=== PATIENT | male | born 1970 | race Caucasian/White ===

== ENCOUNTER 2021-01-17 01:04 | Emergency (ER) | payer OTHER ==
[2021-01-17] MEDS ORDERED: Sodium Chloride 0.9% 1000 ML 1,000 ML IV STA (01:15)
[2021-01-17] MEDS ORDERED: HUMULIN R IV ONE (01:17)
--- NOTE | 2021-01-17 01:21 | ERPHSYRPT ---
- History of Present Illness Time Seen by Provider: 01/17/21 01:07 Source: patient Exam Limitations: no limitations Physician History: 50 years old morbidly obese male with history of hypertension, hyperlipidemia, diabetes mellitus poorly controlled presented in the ER with chief complaint of sudden onset dizziness when he woke up almost an hour prior to arrival to go to the bathroom. Patient report he was feeling as if he was going to pass out. It lasted for 30 to 60 seconds and improved. No numbness tingling or focal weakness. Denies any chest pain palpitations or shortness of breath before or after the episode. Patient reports he does not take any antidiabetic medications and his blood sugar usually stays high and also has poorly controlled blood pressure. No abdominal pain nausea or vomiting. Currently he is back to his normal. Patient also report having sinus congestion and discomfort since yesterday. Timing/Duration: hour(s) (1), sudden, improved Severity: moderate Associated Symptoms: denies symptoms Allergies/Adverse Reactions: No Known Drug Allergies Allergy (Unverified 09/07/13 16:40) Home Medications: Canagliflozin [Invokana] 300 mg PO DAILY 09/07/13 [History] Metformin HCl 1000 mg [Glucophage 1000 MG] 1,000 mg PO BID 09/07/13 [History] Nebivolol HCl 5 MG [Bystolic 5 MG] 5 mg PO BID 09/07/13 [History] Olmesartan Medoxomil 20 mg [Benicar 20 MG] 20 mg PO BID 09/07/13 [History] Simvastatin 40 mg [Zocor 40 mg] 40 mg PO BID 09/07/13 [History] Hx Tetanus, Diphtheria Vaccination/Date Given: Yes Hx Influenza Vaccination/Date Given: No Hx Pneumococcal Vaccination/Date Given: No - Review of Systems Constitutional: Fatigue Eyes: No Symptoms Ears, Nose, & Throat: Sinus Drainage Respiratory: No Symptoms Cardiac: No Symptoms Abdominal/Gastrointestinal: No Symptoms Genitourinary Symptoms: No Symptoms Musculoskeletal: No Symptoms Skin: No Symptoms Neurological: Dizziness Psychological: No Symptoms Endocrine: No Symptoms Hematologic/Lymphatic: No Symptoms Immunological/Allergic: No Symptoms - Past Medical History Pertinent Past Medical History: Yes Neurological History: No Pertinent History ENT History: Other Cardiac History: High Cholesterol, Hypertension Respiratory History: Bronchitis Endocrine Medical History: Diabetes Type II Musculoskeletal History: No Pertinent History GI Medical History: GERD, Hernia History: No Pertinent History Psycho-Social History: No Pertinent History Male Reproductive Disorders: No Pertinent History Other Medical History: 2 PIC LINES ET 4 SURGERIES ON LEFT ARM - Past Surgical History Past Surgical History: Yes Neuro Surgical History: No Pertinent History Cardiac: No Pertinent History Respiratory: No Pertinent History Gastrointestinal: No Pertinent History Genitourinary: No Pertinent History Musculoskeletal: No Pertinent History Male Surgical History: No Pertinent History Other Surgical History: LEFT ARM SURGERY TIMES 4 - Social History Smoking Status: Never smoker Exposure to second hand smoke: No Drug Use: none Patient Lives Alone: No - Nursing Vital Signs Nursing Vital Signs: Initial Vital Signs Pulse Rate 71 01/17/21 01:12 Respiratory Rate 18 01/17/21 01:12 Blood Pressure 192/94 01/17/21 01:12 O2 Sat by Pulse Oximetry 98 01/17/21 01:12 Pain Scale Pain Intensity 0 - Physical Exam General Appearance: no apparent distress, alert, anxiety Eye Exam: PERRL/EOMI, eyes nml inspection Ears, Nose, Throat Exam: TMs normal, pharynx normal, other (Bilateral mild maxillary sinus tenderness) Neck Exam: normal inspection, non-tender, full range of motion Respiratory Exam: normal breath sounds, lungs clear Cardiovascular Exam: regular rate/rhythm, normal heart sounds Gastrointestinal/Abdomen Exam: soft, normal bowel sounds Back Exam: normal inspection, normal range of motion Extremity Exam: normal inspection Neurologic Exam: alert, oriented x 3, cooperative, 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 as tested, nml cerebellar function, sensation nml, No normal mood/affect (Anxious), No motor deficits Skin Exam: normal color SpO2 Interpretation: normal SpO2: 97 O2 Delivery: Room Air - Course EKG Interpreted by Me: RATE (66), Sinus Rhythm, NORMAL AXIS, LAFB, NORMAL INTERVALS, Right Bundle Branch Block Ordered Tests: Active Orders 24 hr Category Date Time Status Nutrition Technician STAT Care 01/17/21 01:17 Active EKG-ER Only STAT Care 01/17/21 01:15 Active Orthostatic Vital Signs STAT Care 01/17/21 01:15 Active POCT Glucose Check STAT Care 01/17/21 01:15 Active CHEST 1 VIEW (PORTABLE) Stat Exams 01/17/21 01:16 Taken CBC W DIFF Stat Lab 01/17/21 01:46 Received CMP Stat Lab 01/17/21 01:46 Received MAGNESIUM Stat Lab 01/17/21 01:46 Received POCT GLUCOSE Stat Lab 01/17/21 01:08 Completed TROPONIN Q3H Lab 01/17/21 01:30 Ordered TROPONIN Q3H Lab 01/17/21 04:30 Ordered TROPONIN Q3H Lab 01/17/21 07:30 Ordered TROPONIN Q3H Lab 01/17/21 10:30 Ordered TROPONIN Q3H Lab 01/17/21 13:30 Ordered UA W/RFX UR CULTURE Stat Lab 01/17/21 01:16 Ordered Urine Triage Profile Stat Lab 01/17/21 01:16 Ordered Medication Summary Generic Name Dose Route Start Last Admin Trade Name Freq PRN Reason Stop Dose Admin Sodium Chloride 1,000 mls @ 999 mls/hr 01/17/21 01:15 Sodium Chloride 0.9% 1000 Ml IV 01/17/21 02:15 .Q1H1M STA Discontinued Medications Generic Name Dose Route Start Last Admin Trade Name Freq PRN Reason Stop Dose Admin Sodium Chloride Confirm 01/17/21 01:45 Sodium Chloride 0.9% 1000 Ml Administered 01/17/21 01:46 Dose 1,000 mls @ ud .ROUTE .STK-MED ONE Insulin Human Regular 6 unit 01/17/21 01:17 Insulin Regular, Human 1 Unit IV 01/17/21 01:18 STAT ONE Insulin Human Regular Confirm 01/17/21 01:45 Insulin Regular, Human 1 Unit Administered 01/17/21 01:46 Dose 6 unit .ROUTE .STK-MED ONE Lab/Rad Data: Laboratory Results 01/17/21 Range/Units 01:08 POC Glucometer 346 H (74 to 106) mg/dL - Departure Departure Disposition: Home Clinical Impression: Postural lightheadedness, Uncontrolled hypertension, Hyperglycemia Condition: Stable Critical Care Time: No Referrals: VERONICA CERVANTES [Primary Care Provider] - Follow up/PCP as directed (Tomorrow for reevaluation) Instructions: Vertigo (a Type of Dizziness) (DC) Additional Instructions: Monitor your blood sugar regularly, keep a log and follow-up with primary care for reevaluation. Restart taking Metformin. Monitor your blood pressure as well, keep a log and follow-up with PCP for reevaluation. Take clonidine as needed for blood pressure greater than 160. Return to ER for having dizziness, lightheadedness, numbness tingling focal weakness, difficulty speech, chest pain palpitations or shortness of breath. Prescriptions: Clonidine HCl 0.1 mg [Catapres 0.1 MG] 0.1 mg PO Q12H PRN PRN 10 Days #10 tablet PRN Reason: Hypertension
[2021-01-17] MEDS ORDERED: HUMULIN R ONE (01:45)
[2021-01-17] MEDS ORDERED: Sodium Chloride 0.9% 1000 ML 1,000 ML ONE (01:45)
[2021-01-17 01:56] LABS: Absolute Neutrophil Ct (ANC) 2.53 (1.4-6.9); Basophil (Absolute #) 0.05 (0-0.4); Eosinophil % 4.2 % (0.00-5.0); Eosinophil (Absolute #) 0.21 (0-0.5); Hematocrit 45.1 % (42-50); Hemoglobin 14.9 gm/dl (12.5-18.0); Lymphocyte (Absolute #) 1.84 (1.0-4.6); Lymphocytes % 36.7 % (24.0-44.0); Mean Cell Volume 83.2 fl (78-100); Mean Corpuscular Hemoglobin 27.5 pg (26-32); Mean Platelet Volume 12.7 fl (7.5-11.0); Monocyte (Absolute #) 0.39 (0.0-1.3); Monocytes % 7.8 % (0.0-12.0); Neutrophil % 50.3 % (36.0-66.0); Platelet Count 100 K/mm3 (150-450); Red Blood Count 5.42 M/mm3 (4.1-5.6); Red Cell Distribution Width 14.4 % (11.5-14.0)
[2021-01-17 02:06] LABS: ALBUMIN 3.7 g/dL (3.5-5.0); ALKALINE PHOSPHATASE 81 U/L (38-126); ANION GAP 11.1 MEQ/L (5-15); BLOOD UREA NITROGEN 15 mg/dL (9-20); CHLORIDE 101 mmol/L (98-107); Calcium 9.1 mg/dL (8.4-10.2); Carbon Dioxide 26 mmol/L (22-30); Creatinine 1 0.63 mg/dL (0.66-1.25); EST GLOMERULAR FILTRATION RATE > 60.0 ML/MIN; Glucose 328 mg/dL (74-106); MAGNESIUM 1.7 mg/dL (1.6-2.3); Potassium 4.5 mmol/L (3.5-5.1); SGOT/AST 35 U/L (17-59); SGPT/ALT 29 U/L (0-50); SODIUM 133 mmol/L (137-145); Total Protein 6.9 g/dL (6.3-8.2)
[2021-01-17 03:17] LABS: Appearance CLEAR (CLEAR); Bilirubin NEGATIVE (NEGATIVE); Blood NEGATIVE Ery/ul (0-5); Glucose >=500 mg/dL (NEGATIVE); Ketones NEGATIVE (NEGATIVE); Leukocyte Esterase NEGATIVE (NEGATIVE); Nitrite NEGATIVE (NEGATIVE); Protein,Urine Dip >=500 (Negative); Specific Gravity 1.035 (1.005-1.025); Urobilinogen 4 mg/dL (0-1)
[2021-01-17 03:32] LABS: Amphetamine,Urine NEGATIVE (NEGATIVE); Barbiturate,Urine NEGATIVE (NEGATIVE); Benzodiazepine,Urine NEGATIVE (NEGATIVE); Cocaine,Urine NEGATIVE (NEGATIVE); Methadone,Urine NEGATIVE (NEGATIVE); Opiate,Urine NEGATIVE (NEGATIVE); PCP,Urine NEGATIVE (NEGATIVE); THC,Urine NEGATIVE (NEGATIVE)
[2021-01-17 04:41] VITALS: BP 138/65; PULSE 58; O2SAT 97
--- NOTE | 2021-01-17 07:58 | XRAY ---
Indication: Headache and dizziness. Elevated blood pressure. Multiple contiguous axial images obtained through the head without contrast. Comparison: September 07, 2013. Normal appearing brain parenchyma, ventricles, and bony calvarium for patient's age. Visualized paranasal sinuses and mastoid air cells are clear. Impression: Continued normal CT head without contrast exam. Comment: Preliminary interpretation made by [facility]. No critical discrepancy.
--- NOTE | 2021-01-17 08:06 | XRAY ---
Indication: Dizziness. Comparison: None Portable apical lordotic chest demonstrates normal heart and lungs. Bony thorax intact with mild osteopenia, mild degenerative changes, and partially visualized left shoulder arthroplasty. Impression: Nonacute chest with chronic bony findings.
== END 2021-01-17 04:58 | disposition home or self-care (01) ==
LOC: ED 01:04
DX: I10 Essential (primary) hypertension (principal); R42 Dizziness and giddiness; E11.65 Type 2 diabetes mellitus with hyperglycemia; Z79.84 Long term (current) use of oral hypoglycemic drugs; E78.5 Hyperlipidemia, unspecified
CPT/HCPCS: 36415; 70450; 71045; 80053; 80307; 81001; 82947; 83735; 84484; 85025; 93005; 93041; 96360; 96374; 99284; J1815

== ENCOUNTER 2021-03-10 22:37 | Emergency (ER) | payer OTHER ==
[2021-03-10] MEDS ORDERED: Sodium Chloride 0.9% 1000 ML 1,000 ML IV SCH (23:15)
[2021-03-10] MEDS ORDERED: Sodium Chloride 0.9% 1000 ML 1,000 ML ONE (23:22)
[2021-03-10 23:43] LABS: Absolute Neutrophil Ct (ANC) 3.04 (1.4-6.9); Basophil (Absolute #) 0.09 (0-0.4); Eosinophil % 3.9 % (0.00-5.0); Eosinophil (Absolute #) 0.19 (0-0.5); Hematocrit 45.7 % (42-50); Hemoglobin 15.2 gm/dl (12.5-18.0); Lymphocyte (Absolute #) 1.23 (1.0-4.6); Lymphocytes % 25.4 % (24.0-44.0); Mean Cell Volume 82.5 fl (78-100); Mean Corpuscular Hemoglobin 27.4 pg (26-32); Mean Corpuscular Hgb Concent. 33.3 g/dl (32-36); Mean Platelet Volume 11.7 fl (7.5-11.0); Monocytes % 6.2 % (0.0-12.0); Neutrophil % 62.6 % (36.0-66.0); Platelet Count 98 K/mm3 (150-450); Red Blood Count 5.54 M/mm3 (4.1-5.6); Red Cell Distribution Width 14.6 % (11.5-14.0); White Blood Count 4.9 K/mm3 (4.0-10.5)
--- NOTE | 2021-03-10 23:49 | ERPHSYRPT ---
- History of Present Illness Time Seen by Provider: 03/10/21 22:45 Source: patient Exam Limitations: no limitations Patient Subjective Stated Complaint: "I got dizzy and started having pain in my neck." Triage Nursing Assessment: 50 y/o obese white male with PMH significant for NIDDM, HTN, Hypercholesterolemia, and obesity. He reported that he was sitting at work when he experienced acute onset bilateral neck pain and dizziness. He denied ever experiencing chest pain, shortness of breath, or visual disturbances. Co-workers did not report any speech disturbances, gait disturbances, or witnessed seizure activity. He is complaint free at this time. Coworkers reported the patient being hypertensive at their place of work BP - 175/105 with irregular heart beat. Pupils 4mm brisk bilateral. Oral mucosa pink/moist neck supple without JVD, bruits/thrills. Symmetrical chest expansion. heart tones S1/S2 RRR without extra sounds. Lungs vesicular with adequate airflow. Abdomen obese non-distened, non-surgical, without periotneal sounds and without pulsatile masses. Peripheral pulses +3 bilateral. +1 non-pitting dependent edema. No noted facial droop, slurred speech, or pronator drift. Gait steady without complications. Negative Rhomberg test. Physician History: Patient is a 50-year-old obese male diabetic noncompliant with diabetic regimen presents to our ED with acute onset dizziness and neck pain. Patient states he was at work sitting when symptoms occurred. Patient developed bilateral neck pain and became acutely dizzy. No syncope. No seizure. Symptoms lasted for several minutes then resolved. Patient is currently asymptomatic. Patient denies numbness tingling or weakness. No trauma. No fever. No nausea or vomiting. Symptoms are moderate in intensity. No specific worsening or improving factors. Timing/Duration: today Severity: moderate Modifying Factors: Improves With: nothing Associated Symptoms: denies symptoms Allergies/Adverse Reactions: No Known Drug Allergies Allergy (Unverified 03/10/21 22:41) Home Medications: Metformin HCl 500 mg [Glucophage 500 MG] 500 mg PO DAILY 01/17/21 [History] Metoprolol Succinate 50 mg [Toprol Xl 50 MG] 50 mg PO DAILY 01/17/21 [History] Hx Tetanus, Diphtheria Vaccination/Date Given: Yes Hx Influenza Vaccination/Date Given: No Hx Pneumococcal Vaccination/Date Given: No Travel Risk - International Travel Have you traveled outside of the country in past 3 weeks: No - Coronavirus Screening Are you exhibiting any of the following symptoms?: No Close contact with a COVID-19 positive Pt in past 14-21 Days: No - Vaccine Status Have you recieved a Covid-19 vaccination: Yes [employer] Mer[employer]: Moderna - Vaccination Dates Date of 2cond Vaccination (if applicable): 2020 - Review of Systems Constitutional: No Symptoms, No Fever, No Chills Eyes: No Symptoms Ears, Nose, & Throat: No Symptoms Respiratory: No Symptoms, No Cough, No Dyspnea Cardiac: No Symptoms, No Chest Pain, No Edema, No Syncope Abdominal/Gastrointestinal: No Symptoms, No Abdominal Pain, No Nausea, No Vomiting, No Diarrhea Genitourinary Symptoms: No Symptoms, No Dysuria Musculoskeletal: No Symptoms, No Back Pain, No Neck Pain Skin: No Symptoms, No Rash Neurological: No Symptoms, No Dizziness, No Focal Weakness, No Sensory Changes Psychological: No Symptoms Endocrine: No Symptoms Hematologic/Lymphatic: No Symptoms Immunological/Allergic: No Symptoms All Other Systems: Reviewed and Negative - Past Medical History Pertinent Past Medical History: Yes Neurological History: No Pertinent History ENT History: Other Cardiac History: High Cholesterol, Hypertension Respiratory History: Bronchitis Endocrine Medical History: Diabetes Type II Musculoskeletal History: No Pertinent History GI Medical History: GERD, Hernia History: No Pertinent History Psycho-Social History: No Pertinent History Male Reproductive Disorders: No Pertinent History Other Medical History: 2 PIC LINES ET 4 SURGERIES ON LEFT ARM - Past Surgical History Past Surgical History: Yes Neuro Surgical History: No Pertinent History Cardiac: No Pertinent History Respiratory: No Pertinent History Gastrointestinal: No Pertinent History Genitourinary: No Pertinent History Musculoskeletal: No Pertinent History Male Surgical History: No Pertinent History Other Surgical History: LEFT ARM SURGERY TIMES 4 - Social History Smoking Status: Never smoker Exposure to second hand smoke: No Drug Use: none Patient Lives Alone: No - Nursing Vital Signs Nursing Vital Signs: Initial Vital Signs Pulse Rate 84 03/10/21 22:38 Respiratory Rate 18 03/10/21 22:38 Blood Pressure 149/87 03/10/21 22:38 O2 Sat by Pulse Oximetry 97 03/10/21 22:38 Pain Scale Pain Intensity 0 - Physical Exam General Appearance: no apparent distress, alert Eye Exam: PERRL/EOMI, eyes nml inspection Ears, Nose, Throat Exam: normal ENT inspection, TMs normal, pharynx normal, moist mucous membranes Neck Exam: normal inspection, non-tender, supple, full range of motion Respiratory Exam: normal breath sounds, lungs clear, airway intact, No chest tenderness, No respiratory distress Cardiovascular Exam: regular rate/rhythm, normal heart sounds, normal peripheral pulses Gastrointestinal/Abdomen Exam: soft, normal bowel sounds, No tenderness, No mass Back Exam: normal inspection, normal range of motion, No CVA tenderness, No vertebral tenderness Extremity Exam: normal inspection, normal range of motion, pelvis stable, pedal edema, other (2+ lower extremity pitting edema.) Neurologic Exam: alert, oriented x 3, cooperative, normal mood/affect, nml cerebellar function, nml station & gait, sensation nml, No motor deficits Skin Exam: normal color, warm, dry, No rash Lymphatic Exam: No adenopathy SpO2 Interpretation: normal SpO2: 96 O2 Delivery: Room Air - Course Nursing assessment & vital signs reviewed: Yes EKG Interpreted by Me: RATE (86), Sinus Rhythm, NORMAL AXIS, NORMAL INTERVALS - Radiology Exams Chest X-ray Interpretation: Interpreted by me (Clear lung rodriguez. Normal cardiac silhouette. Intact bony thorax.) - CT Exams Head CT Interpretation: Tele-radiologist Report (No acute intracranial abnormality.) Ordered Tests: Active Orders 24 hr Category Date Time Status Commercial Airline Pilot STAT Care 03/10/21 23:10 Active EKG-ER Only STAT Care 03/10/21 23:09 Active IV Insertion STAT Care 03/10/21 23:09 Active POCT Glucose Check STAT Care 03/10/21 23:06 Active Pulse Oximetry (ED) STAT Care 03/10/21 23:09 Active CHEST 1 VIEW (PORTABLE) Stat Exams 03/10/21 23:10 Taken HEAD WITHOUT CONTRAST [CT] Stat Exams 03/10/21 23:24 Taken CBC W DIFF Stat Lab 03/10/21 23:30 Completed CMP Stat Lab 03/10/21 23:30 Completed ETHYL ALCOHOL Stat Lab 03/10/21 23:30 Completed PTT Stat Lab 03/11/21 00:00 Completed TROPONIN Q3H Lab 03/10/21 23:30 Completed TROPONIN Q3H Lab 03/11/21 02:09 Completed TROPONIN Q3H Lab 03/11/21 05:15 Ordered TROPONIN Q3H Lab 03/11/21 08:15 Ordered TROPONIN Q3H Lab 03/11/21 11:15 Ordered Urine Triage Profile Stat Lab 03/10/21 23:12 Completed Medication Summary Generic Name Dose Route Start Last Admin Trade Name Pamela PRN Reason Stop Dose Admin Sodium Chloride 1,000 mls @ 100 mls/hr 03/10/21 23:15 03/10/21 23:22 Sodium Chloride 0.9% 1000 Ml IV 04/09/21 23:14 100 mls/hr .Q10H CHIQUI Administration Nitroglycerin/Dextrose 250 mls @ 1.5 mls/hr 03/11/21 00:43 03/11/21 00:57 Ntg 0.2mg/Ml In D5w Glass IV 04/10/21 00:42 5 mcg/min .Q24H PRN 1.5 mls/hr CHEST PAIN Administration Protocol 5 MCG/MIN Heparin Sodium/Dextrose 25,000 units in 250 mls @ 10 mls/hr 03/11/21 00:59 Heparin 25,000 Units/D5w 250ml Premix IV 04/10/21 00:58 .Q24H CHIQUI Discontinued Medications Generic Name Dose Route Start Last Admin Trade Name Pamela PRN Reason Stop Dose Admin Aspirin 324 mg 03/11/21 03:07 03/11/21 03:11 Aspirin 81 Mg Tab.Chew PO 03/11/21 03:08 324 mg STAT ONE Administration Aspirin Confirm 03/11/21 03:11 Aspirin 81 Mg Tab.Chew Administered 03/11/21 03:12 Dose 324 mg .ROUTE .STK-MED ONE Clopidogrel Bisulfate 600 mg 03/11/21 03:04 03/11/21 04:52 Clopidogrel Bisulfate 75 Mg Tablet PO 03/11/21 03:05 600 mg STAT ONE Administration Heparin Sodium (Beef Lung) 5,000 unit 03/11/21 00:53 03/11/21 00:56 Heparin 5000 Unit/0.5 Ml Syringe IV 03/11/21 00:54 5,000 unit STAT ONE Administration Heparin Sodium (Beef Lung) Confirm 03/11/21 00:56 Heparin 5000 Unit/0.5 Ml Syringe Administered 03/11/21 00:57 Dose 5,000 unit .ROUTE .STK-MED ONE Heparin Sodium/Dextrose 250 mls @ 10 mls/hr 03/11/21 01:00 Heparin 25,000 Units/D5w 250ml Premix IV 04/10/21 00:59 .Q24H CHIQUI Heparin Sodium/Dextrose 25,000 units in 250 mls @ 10 mls/hr 03/11/21 01:00 03/11/21 01:00 Heparin 25,000 Units/D5w 250ml Premix IV 04/10/21 00:59 10 mls/hr .Q24H CHIQUI 10 mls/hr Administration Heparin Sodium/Dextrose Confirm 03/11/21 00:56 Heparin 25,000 Units/D5w 250ml Premix Administered 03/11/21 00:57 Dose 25,000 units in 250 mls @ ud IV .[facility] ONE Lab/Rad Data: Laboratory Result Diagrams 03/10/21 23:30 03/10/21 23:30 Laboratory Results 03/11/21 03/11/21 03/11/21 Range/Units 02:09 01:41 00:00 WBC (4.0-10.5) K/mm3 RBC (4.1-5.6) M/mm3 Hgb (12.5-18.0) gm/dl Hct (42-50) % MCV (78-100) fl MCH (26-32) pg MCHC (32-36) g/dl RDW (11.5-14.0) % Plt Count (150-450) K/mm3 MPV (7.5-11.0) fl Gran % (36.0-66.0) % Eos # (Auto) (0-0.5) Absolute Lymphs (auto) (1.0-4.6) Absolute Monos (auto) (0.0-1.3) Lymphocytes % (24.0-44.0) % Monocytes % (0.0-12.0) % Eosinophils % (0.00-5.0) % Basophils % (0.0-0.4) % Absolute Granulocytes (1.4-6.9) Basophils # (0-0.4) APTT 33.7 (25.1-36.5) SECONDS Sodium (137-145) mmol/L Potassium (3.5-5.1) mmol/L Chloride (98-107) mmol/L Carbon Dioxide (22-30) mmol/L Anion Gap (5-15) MEQ/L BUN (9-20) mg/dL Creatinine (0.66-1.25) mg/dL Estimated GFR ML/MIN Glucose (74-106) mg/dL Calcium (8.4-10.2) mg/dL Total Bilirubin (0.2-1.3) mg/dL AST (17-59) U/L ALT (0-50) U/L Alkaline Phosphatase (38-126) U/L Troponin I 1.340 H* (0.000-0.034) ng/mL Serum Total Protein (6.3-8.2) g/dL Albumin (3.5-5.0) g/dL Urine Opiates Level (NEGATIVE) Ur Methadone (NEGATIVE) Urine Barbiturates (NEGATIVE) Ur Phencyclidine (PCP) (NEGATIVE) Urine Amphetamine (NEGATIVE) U Benzodiazepine Level (NEGATIVE) Urine Cocaine (NEGATIVE) Urine Marijuana (THC) (NEGATIVE) Ethyl Alcohol (0-10) mg/dL Influenza Type A Ag NEGATIVE (NEGATIVE) Influenza Type B Ag NEGATIVE (NEGATIVE) RSV (PCR) NEGATIVE (Negative) SARS-CoV-2 (PCR) NEGATIVE (NEGATIVE) 03/10/21 03/10/21 03/10/21 Range/Units 23:30 23:30 23:30 WBC 4.9 (4.0-10.5) K/mm3 RBC 5.54 (4.1-5.6) M/mm3 Hgb 15.2 (12.5-18.0) gm/dl Hct 45.7 (42-50) % MCV 82.5 (78-100) fl MCH 27.4 (26-32) pg MCHC 33.3 (32-36) g/dl RDW 14.6 H (11.5-14.0) % Plt Count 98 L (150-450) K/mm3 MPV 11.7 H (7.5-11.0) fl Gran % 62.6 (36.0-66.0) % Eos # (Auto) 0.19 (0-0.5) Absolute Lymphs (auto) 1.23 (1.0-4.6) Absolute Monos (auto) 0.30 (0.0-1.3) Lymphocytes % 25.4 (24.0-44.0) % Monocytes % 6.2 (0.0-12.0) % Eosinophils % 3.9 (0.00-5.0) % Basophils % 1.9 (0.0-0.4) % Absolute Granulocytes 3.04 (1.4-6.9) Basophils # 0.09 (0-0.4) APTT (25.1-36.5) SECONDS Sodium 135 L (137-145) mmol/L Potassium 4.3 (3.5-5.1) mmol/L Chloride 100 (98-107) mmol/L Carbon Dioxide 25 (22-30) mmol/L Anion Gap 14.7 (5-15) MEQ/L BUN 10 (9-20) mg/dL Creatinine 0.68 (0.66-1.25) mg/dL Estimated GFR > 60.0 ML/MIN Glucose 383 H (74-106) mg/dL Calcium 9.0 (8.4-10.2) mg/dL Total Bilirubin 0.80 (0.2-1.3) mg/dL AST 41 (17-59) U/L ALT 32 (0-50) U/L Alkaline Phosphatase 90 (38-126) U/L Troponin I 0.306 H* (0.000-0.034) ng/mL Serum Total Protein 7.6 (6.3-8.2) g/dL Albumin 4.0 (3.5-5.0) g/dL Urine Opiates Level (NEGATIVE) Ur Methadone (NEGATIVE) Urine Barbiturates (NEGATIVE) Ur Phencyclidine (PCP) (NEGATIVE) Urine Amphetamine (NEGATIVE) U Benzodiazepine Level (NEGATIVE) Urine Cocaine (NEGATIVE) Urine Marijuana (THC) (NEGATIVE) Ethyl Alcohol < 10 (0-10) mg/dL Influenza Type A Ag (NEGATIVE) Influenza Type B Ag (NEGATIVE) RSV (PCR) (Negative) SARS-CoV-2 (PCR) (NEGATIVE) 03/10/21 Range/Units 23:12 WBC (4.0-10.5) K/mm3 RBC (4.1-5.6) M/mm3 Hgb (12.5-18.0) gm/dl Hct (42-50) % MCV (78-100) fl MCH (26-32) pg MCHC (32-36) g/dl RDW (11.5-14.0) % Plt Count (150-450) K/mm3 MPV (7.5-11.0) fl Gran % (36.0-66.0) % Eos # (Auto) (0-0.5) Absolute Lymphs (auto) (1.0-4.6) Absolute Monos (auto) (0.0-1.3) Lymphocytes % (24.0-44.0) % Monocytes % (0.0-12.0) % Eosinophils % (0.00-5.0) % Basophils % (0.0-0.4) % Absolute Granulocytes (1.4-6.9) Basophils # (0-0.4) APTT (25.1-36.5) SECONDS Sodium (137-145) mmol/L Potassium (3.5-5.1) mmol/L Chloride (98-107) mmol/L Carbon Dioxide (22-30) mmol/L Anion Gap (5-15) MEQ/L BUN (9-20) mg/dL Creatinine (0.66-1.25) mg/dL Estimated GFR ML/MIN Glucose (74-106) mg/dL Calcium (8.4-10.2) mg/dL Total Bilirubin (0.2-1.3) mg/dL AST (17-59) U/L ALT (0-50) U/L Alkaline Phosphatase (38-126) U/L Troponin I (0.000-0.034) ng/mL Serum Total Protein (6.3-8.2) g/dL Albumin (3.5-5.0) g/dL Urine Opiates Level NEGATIVE (NEGATIVE) Ur Methadone NEGATIVE (NEGATIVE) Urine Barbiturates NEGATIVE (NEGATIVE) Ur Phencyclidine (PCP) NEGATIVE (NEGATIVE) Urine Amphetamine NEGATIVE (NEGATIVE) U Benzodiazepine Level NEGATIVE (NEGATIVE) Urine Cocaine NEGATIVE (NEGATIVE) Urine Marijuana (THC) NEGATIVE (NEGATIVE) Ethyl Alcohol (0-10) mg/dL Influenza Type A Ag (NEGATIVE) Influenza Type B Ag (NEGATIVE) RSV (PCR) (Negative) SARS-CoV-2 (PCR) (NEGATIVE) - Progress Progress: improved Progress Note: 03/11/21 01:[address] Kyle hospitalist at [facility] who accepts patient however there are no beds available currently. They are not certain when a bed will be available. Possibly tomorrow but no guarantees. Case discussed with Dr. Wilson who accepts transfer to [facility] however they have no beds available at this time. 03/11/21 02:[address] Thrasher advertising consultant at [facility] accepts transfer. He advises 600 mg of Plavix. Plavix ordered 03/11/21 03:05 Counseled pt/family regarding: lab results, diagnosis, rad results - Departure Departure Disposition: Transfer Clinical Impression: Non compliance with medical treatment, NSTEMI (non-ST elevated myocardial infarction), Elevated troponin, Hyperglycemia, Thrombocytopenia Condition: Stable Critical Care Time: No Referrals: DOCTOR,NO FAMILY [Primary Care Provider] - Follow up/PCP as directed
[2021-03-10 23:59] LABS: Amphetamine,Urine NEGATIVE (NEGATIVE); Barbiturate,Urine NEGATIVE (NEGATIVE); Benzodiazepine,Urine NEGATIVE (NEGATIVE); Cocaine,Urine NEGATIVE (NEGATIVE); Methadone,Urine NEGATIVE (NEGATIVE); Opiate,Urine NEGATIVE (NEGATIVE); PCP,Urine NEGATIVE (NEGATIVE); THC,Urine NEGATIVE (NEGATIVE)
[2021-03-11 00:15] LABS: ALKALINE PHOSPHATASE 90 U/L (38-126); ANION GAP 14.7 MEQ/L (5-15); BLOOD UREA NITROGEN 10 mg/dL (9-20); CHLORIDE 100 mmol/L (98-107); Carbon Dioxide 25 mmol/L (22-30); Creatinine 1 0.68 mg/dL (0.66-1.25); EST GLOMERULAR FILTRATION RATE > 60.0 ML/MIN; ETHYL ALCOHOL < 10 mg/dL (0-10); Glucose 383 mg/dL (74-106); Potassium 4.3 mmol/L (3.5-5.1); SGOT/AST 41 U/L (17-59); SGPT/ALT 32 U/L (0-50); SODIUM 135 mmol/L (137-145); Total Protein 7.6 g/dL (6.3-8.2)
[2021-03-11] MEDS ORDERED: Ntg 0.2MG/Ml in D5W GLASS*** 250 ML IV PRN (00:43)
[2021-03-11] MEDS ORDERED: Heparin 5000 UNITS/0.5 ML (HIGH RISK MED) IV ONE (00:53)
[2021-03-11] MEDS ORDERED: Heparin 25,000 units/D5W 250ML PREMIX 25,000 UNITS/250 ML BAG IV ONE (00:56)
[2021-03-11] MEDS ORDERED: Heparin 5000 UNITS/0.5 ML (HIGH RISK MED) ONE (00:56)
[2021-03-11] MEDS ORDERED: Heparin 25,000 units/D5W 250ML PREMIX 25,000 UNITS/250 ML BAG IV SCH ×2 (00:59→01:00)
[2021-03-11] MEDS ORDERED: Heparin 25,000 units/D5W 250ML PREMIX 250 ML IV SCH (01:00)
[2021-03-11 02:23] LABS: INFLUENZA A NEGATIVE (NEGATIVE); INFLUENZA B NEGATIVE (NEGATIVE); RESPIRATORY SYNCTIAL VIRUS NEGATIVE (Negative); SARS-CoV-2 Xpert Express NEGATIVE (NEGATIVE)
[2021-03-11 03:03] VITALS: PULSE 79
[2021-03-11] MEDS ORDERED: PLAVIX 75 MG Tablet PO ONE (03:04)
[2021-03-11] MEDS ORDERED: BABY ASPIRIN 81 MG CHEW PO ONE (03:07)
[2021-03-11] MEDS ORDERED: BABY ASPIRIN 81 MG CHEW ONE (03:11)
[2021-03-11 04:15] VITALS: BP 146/76
[2021-03-11 04:56] VITALS: O2SAT 96
--- NOTE | 2021-03-11 08:45 | XRAY ---
Indication: Headache and dizziness. Stroke. Multiple contiguous axial images obtained through the head without contrast. Comparison: January 17, 2021. Normal appearing brain parenchyma, ventricles, and bony calvarium for patient's age. Visualized paranasal sinuses and mastoid air cells are clear. Impression: Continued normal CT head without contrast exam. Comment: Preliminary interpretation made by [facility]. No critical discrepancy.
--- NOTE | 2021-03-11 08:57 | XRAY ---
Indication: Pneumonia. Comparison: January 17, 2021. Portable apical lordotic chest remains clear. Heart not enlarged. Bony thorax intact again with osteopenia, degenerative changes, and left shoulder arthroplasty. No new/acute findings.
== END 2021-03-11 05:40 | disposition short-term general hospital (02) ==
LOC: ED 22:37
DX: I21.4 Non-ST elevation (NSTEMI) myocardial infarction (principal); D69.6 Thrombocytopenia, unspecified; E11.65 Type 2 diabetes mellitus with hyperglycemia; Z79.84 Long term (current) use of oral hypoglycemic drugs; R77.8 Other specified abnormalities of plasma proteins; R42 Dizziness and giddiness; M54.2 Cervicalgia; E78.5 Hyperlipidemia, unspecified; I10 Essential (primary) hypertension; K21.9 Gastro-esophageal reflux disease without esophagitis; Z91.14 Patient's other noncompliance with medication regimen; Z20.828 Contact with and (suspected) exposure to other viral communicable diseases
CPT/HCPCS: 0241U; 36000; 36415; 70450; 71045; 80053; 80307; 84484; 85025; 85730; 93005; 93041; 94760; 96374; 99285; J1644; A9270-GY; G0480